=== PATIENT | male | born 2005 | race Caucasian/White ===

== ENCOUNTER 2024-09-22 20:20 | Emergency (ER) | payer SELFPAY ==
[2024-09-22 20:23] VITALS: BP 165/80
[2024-09-22 21:13] VITALS: BMI 43.3
--- NOTE | 2024-09-22 22:52 | ED.GENMED ---
History of Present Illness
General
Chief Complaint: Skin Problem
Source: patient
Exam Limitations: none
Time Seen by Provider: 09/22/24 21:45
Nursing documentation reviewed up to this point in time: agreed with
History of Present Illness
History of Present Illness:
19-year-old male presents to the ER for evaluation of discomfort in his sacrum. Patient reports yesterday he noticed that he was having some aching in his sacrum when he sat down and he noticed that there was a bump there�he says he was able to
express some drainage at home. He went to the urgent care and was told he has an abscess and needs to go to the ER for assessment. He denies any fevers or chills or any other complaints. No pain with bowel movements.
Review of Systems
Review of Systems
All Other Systems: ROS reviewed and negative except as documented in HPI and ROS
Constitutional: Denies fever
ABD/GI: Denies abdominal pain
Phy Exam
Physical Exam
Physical Exam:
General: Awake, alert; no acute distress
Head: Normocephalic, atraumatic
Eyes: Conjunctiva normal
Throat: Airway intact, handling secretions
Neck: Trachea midline
Lungs: Breathing comfortably no distress
Heart: Regular rate
Abd: Soft, non distended, nontender
Back: Patient has pilonidal abscess with small central cleft which is open and draining scant amount purulent fluid; small rim of erythema surrounding the area approximately 3 cm total diameter
Rectal: Patient declined
Extremities: Warm and well-perfused
Scores
Heart Failure Risk
Heart Failure Risk Score: Not Applicable
Heart Score for Chest Pain Patients
STEMI patient?: Not applicable
Withdrawal Assessment of Alcohol
Withdrawal Assessment Completed?: Not applicable
Course
Orders/Labs/Results
Orders:
Orders
09/22/24 22:15
Cefdinir [Omnicef] 300 mg PO NOW STA
MetroNIDAZOLE [Flagyl] 500 mg PO NOW STA
Vital Signs
Initial and Last Documented VS:
Initial Vital Signs
Temp Pulse Resp BP Pulse Ox
36.8 C 89 15 165/80 98
09/22/24 20:23 09/22/24 20:23 09/22/24 20:23 09/22/24 20:23 09/22/24 20:23
Last Documented Vital Signs
Temp Pulse Resp BP Pulse Ox
36.8 C 89 15 165/80 98
09/22/24 20:23 09/22/24 20:23 09/22/24 20:23 09/22/24 20:23 09/22/24 20:23
Procedures
Incision/Drainage/Joint Aspiration
Sacrum:
Anethesia: 1% Lidocaine with Epi
Preparation: cleaned with alcohol wipe
Type of procedure: incise and drain
Nature of site: abscess
Description of abscess: less than 3cm
Loculations broken up: Yes
How much fluid was obtained?: small amount
Fluid description: purulent and blood tinged
Treatment: left open for drainage
MDM/Problems Addressed
Differential Diagnosis Includes:
Pilonidal abscess
MDM/Problems Addressed:
19-year-old male presents with a pilonidal abscess. He was already able to express some purulence at home�there is open area of drainage. Area was anesthetized and opening was extended using scalpel. Small amount of purulent blood-tinged drainage
expressed. Loculations broken up area was irrigated with saline and clean dressing applied. Will start on antibiotics. Stable for discharge. Provided follow-up with colorectal surgery. Spoke about follow-up plan and return precautions. All
questions answered.
*Pulse Oximetry
SaO2: 98
Patient hypoxic: no (98%)
*Critical Care Note
Total Time (30-74mins, 75-104mins- exclusive of procedures): Not Applicable
Data Reviewed
Further Testing Considered But Not Given:
Considered CT pelvis
ED Attending Note
-
Portions of this chart may have been created with voice recognition software.� Occasional wrong word or��sound alike� substitutions may have occurred due to the inherent limitations of voice recognition software.
Discharge Plan
Departure
Patient Disposition: Home (Routine Discharge)
Date of Disposition: 09/22/24
Time of Disposition: 22:52
Patient with high blood pressure during this ER visit?: Yes
Discharge Problem:
Pilonidal abscess, Hypertension
Instructions: BLOOD PRESSURE, Pilonidal Disease
Prescriptions:
New
cefdinir 300 mg capsule
300 mg PO BID Qty: 14 0RF
metronidazole 500 mg tablet
500 mg PO TID Qty: 21 0RF
Referrals:
Kenny Baum MD [Active, ColoRectal] - Call in 1-3 days for appt
Stand Alone Forms: Return to Work
Activity Restrictions/Additional Instructions:
Thank you for visiting the Emergency Department at [facility].
1. Please schedule a follow up appointment as directed. Call first thing tomorrow morning to make an appointment.
2. If indicated, please take your medications as instructed and indicated on discharge paperwork.
3. If any of your symptoms do not improve, or persist, or become more severe within 6-12 hours, please return to the emergency department for further care.
4. Please return to the emergency department if you develop a headache, neck pain/stiffness, fever greater than 100.4F, chest pain, shortness of breath, persistent nausea, vomiting, slurred speech, difficulty walking, numbness/tingling, weakness,
signs of infection or any other symptoms that are worrisome to you.
Please call [phone] if you have any questions.
Interventions
Interventions:
*Risk Screen - Suicide Last Done: 09/22/24 20:23
*General Assessment Last Done: 09/22/24 20:23
*Neglect/Abuse Screening Last Done: 09/22/24 20:23
*ED- Fall Risk Assessment Last Done: 09/22/24 21:13
*ED COVID-19 Vaccine History Last Done: 09/22/24 21:13
ED-Skin Assessment Last Done: 09/22/24 21:22
Discharge Date and Time
Print Language: ICELANDIC
[2024-09-22] MEDS: OMNICEF 300 MG PO (23:04)
[2024-09-22] MEDS: FLAGYL 500 MG PO (23:04)
[2024-09-22 23:06] VITALS: BP 138/76
== END 2024-09-22 23:10 | disposition home or self-care (01) ==
LOC: EMR 20:20
PROVIDERS: EMERGENCY PHYSICIAN Emergency Medicine
DX: L05.01 Pilonidal cyst with abscess (principal); I10 Essential (primary) hypertension
CPT/HCPCS: 99282; 10060